=== PATIENT | female | born 1965 | race Two or more races ===

== ENCOUNTER → 2020-04-09 | Outpatient (CLI) | payer OTHER ==
--- NOTE | 2020-04-12 12:56 | DEXA ---
AP SPINE L1 - L4 0.999 -1.6 -0.8 LT FEMUR TOTAL 0.862 -1.2 -0.5 LT NECK 0.874 -1.2 -0.2 RT FEMUR TOTAL 0.783 -1.8 -1.1 RT NECK 0.852 -1.3 -0.3 TOTAL BODY TOTAL OTHER COMMENTS: There is low bone density of the spine and hips. FOLLOW-UP: Recommendation for the next bone density exam: 2 years. JAYY
== END ==
LOC: M WHC 13:40
PROVIDERS: ATTEND Internal Medicine Endocrinology, Diabetes & Metabolism
DX: M85.89 Other specified disorders of bone density and structure, multiple sites (principal); N95.1 Menopausal and female climacteric states

== ENCOUNTER → 2021-01-17 | Outpatient (CLI) | payer OTHER ==
--- NOTE | 2021-01-17 16:35 | REP ---
INDICATION: SCR MAMMO/S/P L MASTECTOMY. COMPARISON: 01/16/2020 as well as other prior exams. TECHNIQUE: MLO and CC views bilateral breasts, with tomosynthesis and implant displaced views. FINDINGS: Bilateral implants are grossly intact. The patient has had a left mastectomy in 1996. There is moderate fibroglandular tissue scattered throughout the right breast. No new mass is seen in the right breast and there is no architectural distortion. No suspicious clusters of microcalcifications are seen. A stable subcentimeter smoothly marginated nodule is seen in the upper outer quadrant of the right breast. The Volpara volumetric breast density pattern is D. IMPRESSION: BIRADS/ACR category 2, benign. Status post left mastectomy. Bilateral breast implants are grossly intact. No new mass or clustered microcalcifications. This mammogram was interpreted with the aid of an FDA-approved computer-aided detection system. The patient states she had a clinical breast exam in September 2020. The patient letter being requested is M1. RECOMMENDATION: Repeat screening mammography recommended 1 year (for women over 40). <Electronically signed by Tam Weinberg > 01/17/21 [id number]
== END ==
LOC: M WHC 13:47
PROVIDERS: ATTEND Family Medicine
DX: Z12.31 Encounter for screening mammogram for malignant neoplasm of breast (principal); Z85.3 Personal history of malignant neoplasm of breast; Z90.12 Acquired absence of left breast and nipple; R92.2 Inconclusive mammogram; R92.1 Mammographic calcification found on diagnostic imaging of breast

== ENCOUNTER → 2022-01-30 | Outpatient (CLI) | payer OTHER | LOC: M WHC 11:20 | PROVIDERS: ATTEND Family Medicine | DX: Z12.31 Encounter for screening mammogram for malignant neoplasm of breast (principal) ==

== ENCOUNTER → 2022-08-25 | Outpatient (CLI) | payer OTHER | LOC: M WHC 14:07 | PROVIDERS: ATTEND Family Medicine | DX: Z13.820 Encounter for screening for osteoporosis (principal); Q85.01 Neurofibromatosis, type 1; M85.89 Other specified disorders of bone density and structure, multiple sites ==